=== PATIENT | female | born 1955 | race Caucasian/White ===

== ENCOUNTER → 2017-06-08 | Outpatient (CLI) | payer MEDICAID ==
[~2017-06-08] MED LIST: IOPAMIDOL (ISOVUE 370) 100 ML BTL IV ONE
== END ==
LOC: FIMAGING 07:26
PROVIDERS: ATTEND Physician Assistant
DX: R91.1 Solitary pulmonary nodule (principal)
CPT/HCPCS: Q9967

== ENCOUNTER → 2017-07-20 | Outpatient (CLI) | payer MEDICAID | LOC: FIMAGING 10:07 | PROVIDERS: ATTEND Internal Medicine | DX: Z12.31 Encounter for screening mammogram for malignant neoplasm of breast (principal) ==

== ENCOUNTER → 2017-12-28 | Outpatient (CLI) | payer MEDICAID | LOC: FIMAGING 15:24 | PROVIDERS: ATTEND Internal Medicine | DX: S92.531A Displaced fracture of distal phalanx of right lesser toe(s), initial encounter for closed fracture (principal); Y93.01 Activity, walking, marching and hiking ==

== ENCOUNTER 2018-01-21 09:03 | Emergency (ER) | payer MEDICAID ==
[2018-01-21] MEDS ORDERED: LORazepam 1 MG TAB PO ONE (09:39)
--- NOTE | 2018-01-21 09:53 | EDPHY ---
H & P Smoking Status: Former smoker Time Seen by Provider: 01/21/18 09:33 HPI/ROS: CHIEF COMPLAINT: "I think I was bitten by raccoon" HISTORY OF PRESENT ILLNESS: 62-year-old female with out-of-date tetanus, no medical comorbidities, arrives via private vehicle stating that this morning her 2 dogs ran into a [employer] [place] and she then entered [place] where she sustained multiple abrasions from the plants but found with 1 of her dogs being attacked by a raccoon. She engaged with the raccoon and sustained multiple scratches and possible bites from the raccoon in order to save her dogs. The specific location of this raccoon is unknown by the patient. PRIMARY CARE PROVIDER: REVIEW OF SYSTEMS: A ten point review of systems was performed and is negative with the exception of the items mentioned in the HPI PHYSICAL EXAM (Prior to examination, patient consented to physical exam, hands were washed and my usual and customary physical exam procedures followed) 1) GENERAL: Well-developed, well-nourished, alert and oriented. Appears to be in no acute distress. 2) HEAD: Normocephalic 3) HEENT: sclera anicteric 4) LUNGS: Breathing comfortably. 5) SKIN: Multiple lower extremity abrasions all of which appear noninfected. Multiple upper extremity abrasions all which appear uninfected. No definitive puncture wounds. 6) MUSCULOSKELETAL: All compartments are soft of the upper and lower extremities no signs of infection. No signs of cellulitis. (Nola Soares) Constitutional: Initial Vital Signs Temperature (C) 36.5 C 01/21/18 09:04 Heart Rate 80 01/21/18 09:04 Respiratory Rate 18 01/21/18 09:04 Blood Pressure 125/83 H 01/21/18 09:04 O2 Sat (%) 98 01/21/18 09:04 O2 Delivery Mode Room Air Allergies/Adverse Reactions: codeine Allergy (Mild, Verified 01/21/18 09:09) Rash Home Medications: Medication Instructions Recorded Amoxicillin/Clavulanate Pot 875 mg PO BID #14 tab 01/21/18 [Augmentin 875 mg tab] Eye Drops For Glaucoma 01/21/18 Fluticasone/Salmeterol [Advair Hfa 12 gm IH 01/21/18 115-21 Mcg Inhaler] Montelukast Sodium [Singulair 10 10 mg PO DAILY@1800 01/21/18 mg (*)] MDM/Departure - MDM Medications Given: Discontinued Medications Diphtheria/Tetanus/Acell Pertussis (Boostrix) 0.5 ml IM .ONCE ONE Stop: 01/21/18 09:55 Last Admin: 01/21/18 11:19 Dose: 0.5 ml Lorazepam (Ativan) 1 mg PO EDNOW ONE Stop: 01/21/18 09:40 Last Admin: 01/21/18 09:50 Dose: 1 mg Rabies Immune Globulin (Hyperrab 150 Unit/Ml) 1,780 unit IM .ONCE ONE Stop: 01/21/18 09:55 Last Admin: 01/21/18 11:10 Dose: 1,780 unit Rabies Vaccine Human Diploid Cell (Rabavert) 2.5 unit IM .ONCE ONE Stop: 01/21/18 09:55 Last Admin: 01/21/18 11:06 Dose: 2.5 unit ED Course/Re-evaluation: 9:50 a.m.: Patient I discussed that because she has engaged with raccoon and sustained possible bites I recommended updating her tetanus, initiating antibiotic therapy with Augmentin and initiating post exposure rabies prophylaxis.. Today will be considered day 0. There is no definitive of bite site to inject the immunoglobulin and will therefore be dispersed per nursing protocols. 9:57 a.m.: Consultation with Dr. Cydney Rosales as the patient will need follow- up for further rabies post exposure prophylaxis at the [facility]. This information has been written down for the patient. I saw this patient independently based on established practice protocols. Care of patient under supervision of secondary supervising physician Dr Teo Newman with whom I discussed case. (Nola Soares) I did not see this patient while she was in the emergency department. However her care was discussed with the PA while the patient was in the department. I agree with treatment plan and management (Teo Newman) - Depart Disposition: Home, Routine, Self-Care Clinical Impression: Raccoon bite Qualifiers: Encounter type: initial encounter Qualified Code(s): W55.51XA - Bitten by raccoon, initial encounter Condition: Good Instructions: Animal Bite (ED), Rabies (ED) Additional Instructions: Your rabies schedule is as follows: Today is considered day 0 (01/21/18) You will need follow-up rabies vaccine on Day 3: 01/24 Day 7: 01/28 Day 14: 02/04 Prescriptions: Amoxicillin/Clavulanate Pot [Augmentin 875 mg tab] 875 mg PO BID #14 tab Referrals: [facility] [Outside] - 01/24/18
[2018-01-21] MEDS ORDERED: TDAP ADULT 0.5 ML INJ (BOOSTRIX) IM ONE (09:54)
[2018-01-21] MEDS ORDERED: RABIES IMMUNE GLOBULIN 300 UNIT/2 ML VIAL IM ONE (09:54)
[2018-01-21] MEDS ORDERED: RABIES VACC, HUMAN DIPLOID/PF 2.5 UNIT VIAL (RABAVERT) IM ONE (09:54)
[2018-01-21 11:39] VITALS: BP 140/69
== END 2018-01-21 11:37 | disposition home or self-care (01) ==
DX: S40.811A Abrasion of right upper arm, initial encounter (principal); S40.812A Abrasion of left upper arm, initial encounter; S80.811A Abrasion, right lower leg, initial encounter; S80.812A Abrasion, left lower leg, initial encounter; Z23 Encounter for immunization; Z87.891 Personal history of nicotine dependence; W55.51XA Bitten by raccoon, initial encounter; Y92.89 Other specified places as the place of occurrence of the external cause; Y99.8 Other external cause status; Y93.89 Activity, other specified

== ENCOUNTER 2018-04-21 08:13 | Day surgery (SDC) | payer MEDICAID ==
[2018-04-21] MEDS ORDERED: LR 1,000 ML IV ONE (08:25)
[2018-04-21] MEDS ORDERED: LIDOCAINE 1% 2 ML INJ ID PRN (08:25)
--- NOTE | 2018-04-21 09:06 | PDANEPAE ---
ANE History of Present Illness Right 3rd toe fracture and cyst, here for ORIF and cystectomy ANE Past Medical History - Cardiovascular History Hx Hypertension: No Hx Arrhythmias: No Hx Chest Pain: No Hx Coronary Artery / Peripheral Vascular Disease: No Hx CHF / Valvular Disease: No Hx Palpitations: No Cardiovascular History Comment: SSS PACEMAKER PLACED 02/21/18 - Pulmonary History Hx COPD: No Hx Asthma/Reactive Airway Disease: Yes Hx Recent Upper Respiratory Infection: No Hx Oxygen in Use at Home: No O2 in Use at Home (L/minute): 2 L WITH C-PAP Hx Sleep Apnea: Yes Sleep Apnea Screening Result - Last Documented: Positive - Neurologic History Hx Cerebrovascular Accident: No Hx Seizures: No Hx Dementia: No - Endocrine History Hx Diabetes: No - Renal History Hx Renal Disorders: No - Liver History Hx Hepatic Disorders: No - Neurological & Psychiatric Hx Hx Neurological and Psychiatric Disorders: Yes Neurological / Psychiatric History Comment: ANXIETY - Cancer History Hx Cancer: Yes Cancer History Comment: SKIN - Congenital Disorder History Hx Congenital Disorders: No - GI History Hx Gastrointestinal Disorders: Yes Gastrointestinal History Comment: HX OF COLON POLYPS - Other Health History Other Health History: GLAUCOMA. LOWER EXT ABRASIONS 12/2017. RABIES VACINATION 12/2017. MISSING TEETH - Chronic Pain History Chronic Pain: Yes (RT FOOT TOES) - Surgical History Prior Surgeries: PACEMAKER 02/16/18 [facility]. HYSTERECTOMY WITH BSO. APPENDECTOMY. CERVICAL DISCECTOMY. GASTRIC BYPASS 10/2017 AT [facility]. NASAL MOH'S PROCEDURE ANE Review of Systems Review of Systems: - Pacemaker Pacemaker Reinforcing Steel Erector: Medtronic Pacemaker Model: [place] XT DR ABBASI W1DR0 Pacemaker Mode: DDD Date Pacemaker Last Checked: 03/25/18 ANE Patient History - Allergies Allergies/Adverse Reactions: codeine Allergy (Mild, Verified 01/21/18 09:09) Rash - Home Medications Home Medications: Advair 100/50 (*) BID 02/23/18 [Last Taken 04/20/18] Montelukast Sodium PO HS 02/23/18 [Last Taken 04/20/18] Proair Hfa IH PRN 02/23/18 [Last Taken 03/22/18] Flonase Nasal [place] BID 04/08/18 [Last Taken 04/20/18] Latanoprost 0.005% Eye Drop HS 04/08/18 [Last Taken 04/20/18] ZYRTEC DAILY 04/08/18 [Last Taken 04/20/18] - NPO status NPO Since - Liquids (Date): 04/21/18 NPO Since - Liquids (Time): 00:00 NPO Since - Solids (Date): 04/20/18 NPO Since - Solids (Time): 19:00 - Smoking Hx Smoking Status: Former smoker ANE Labs/Vital Signs - Vital Signs Blood Pressure: 105/73 Heart Rate: 64 Respiratory Rate: 16 O2 Sat (%): 94 Height: 170.18 cm Weight: 83.915 kg ANE Physical Exam - Airway Neck exam: FROM Mallampati Score: Class 2 Mouth exam: normal dental/mouth exam - Pulmonary Pulmonary: no respiratory distress - Cardiovascular Cardiovascular: regular rate and rhythym, no murmur, rub, or gallop - ASA Status ASA Status: III ANE Anesthesia Plan Anesthesia Plan: GA w LMA
[2018-04-21] MEDS ORDERED: MIDAZOLAM 2 MG/2 ML VIAL IVP ONE (09:08)
[2018-04-21] MEDS ORDERED: ceFAZolin 2 GM/DEXTROSE 100 ML IV ONE (09:12)
--- NOTE | 2018-04-21 09:12 | PDHPUP ---
History & Physical Update H&P update statement: This history and physical update is based on an assessment of the patient which was completed after admission or registration (within 24 hours), but prior to the surgery/procedure. H&P update: H&P reviewed & patient examined, no change in patient's condition since H&P completed
[2018-04-21] MEDS ORDERED: PROPOFOL/EMULSION 500 MG/50 ML BOTTLE IV ONE (09:48)
[2018-04-21] MEDS ORDERED: fentaNYL 100 MCG/2 ML INJ ONE (09:48)
[2018-04-21] MEDS ORDERED: LIDOCAINE 2% 5 ML SDV ONE (09:48)
[2018-04-21] MEDS ORDERED: DEXAMETHASONE 4 MG/ML VIAL ONE (09:48)
[2018-04-21] MEDS ORDERED: ONDANSETRON 4 MG/2 ML VIAL ONE (09:48)
[2018-04-21] MEDS ORDERED: EPINEPHrine 1 MG/ML INJ ONE (09:49)
[2018-04-21] MEDS ORDERED: BACITRACIN 50,000 UNITS/10 ML SYR IRR ONE ×2 (09:49→10:19)
[2018-04-21] MEDS ORDERED: BUPIVACAINE 0.25% 30 ML SDV ONE (09:49)
[2018-04-21] MEDS ORDERED: PROPOFOL 200 MG/20 ML VIAL ONE (10:56)
--- NOTE | 2018-04-21 11:36 | POSTOPPROG ---
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
[2018-04-21] MEDS ORDERED: fentaNYL 100 MCG/2 ML INJ IVP PRN (12:09)
[2018-04-21] MEDS ORDERED: ACETAMINOPHEN 500 MG TAB PO PRN (12:09)
[2018-04-21] MEDS ORDERED: DEXAMETHASONE 4 MG/ML VIAL IVP PRN (12:09)
[2018-04-21] MEDS ORDERED: oxyCODONE IR 5 MG TAB PO PRN (12:09)
[2018-04-21] MEDS ORDERED: ONDANSETRON 4 MG/2 ML VIAL IVP PRN (12:09)
[2018-04-21] MEDS ORDERED: NALOXONE HCL 0.4 MG/ML INJ IVP PRN (12:09)
--- NOTE | 2018-04-21 12:10 | POSTANESTH ---
Post Anesthetic Evaluation Cardiovascular Status: Normal, Stable Respiratory Status: Normal, Stable Level of Consciousness/Mental Status: Can Participate in Eval Pain Control: Adequate, Prn Tx Ordered Nausea/Vomiting Control: Adequate, Prn Tx Ordered Complications Possibly Related to Anesthesia: None Noted
[2018-04-21] MEDS ORDERED: ACETAMINOPHEN 500 MG TAB ONE (12:12)
[2018-04-21 13:52] VITALS: BP 111/70
--- NOTE | 2018-04-22 06:27 | GOP ---
DATE OF OPERATION: 04/21/2018 SURGEON: Tu Rogel DPM BB SHOT PACKER: None. ANESTHESIA: Local with MAC. ANESTHESIOLOGIST: Dr. Beth. PREOPERATIVE DIAGNOSIS: 1. Soft tissue tumor, right 2nd digit. 2. 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 POSTOPERATIVE DIAGNOSIS: 1. Soft tissue tumor, right 2nd digit. 2. 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 PROCEDURE PERFORMED: 1. Fusion, right 3rd distal interphalangeal joint. 2. Excision soft tissue tumor, right 2nd digit. FINDINGS: SPECIMENS: Soft tissue specimen sent for pathological evaluation. ESTIMATED BLOOD LOSS: Minimal. DESCRIPTION OF PROCEDURE: The patient presented to [facility] and was cleared for the intended procedure. Patient was taken to the operating room and placed on the table in supine positi on. IV sedation was started per the anesthesia department. Foot was anesthetized and infiltrated in nerve block fashion. Foot was prepped, scrubbed and draped in the usual sterile fashion. Following exsanguination by elevation of Esmarch bandage, pneumatic ankle tourniquet was inflated to 225 mmHg. At this time, attention was directed to the plantar lateral aspect of the right 2nd digit, where th e obvious soft tissue mass was identified. At this time, 2 converging semi-elliptical incisions were made running from [id number] around the soft tissue mass. The incisions were carried deep u tilizing sharp blunt dissection, making sure that all the vascular structures were identified and ret racted at this time, and all superficial bleeders were cauterized. The incision was carried down thr ough to the subcutaneous tissue, at which time the interposing skin tissue and the soft tissue mass w ere dissected free. It was then sent in for pathological evaluation. Inspection of the area showed no remaining soft tissue mass at this time. The area was flushed with copious amounts of sterile santosh ine, before the deep closure with 5-0 Vicryl and skin closure with 5-0 nylon was performed. Upon com pletion of this, attention was redirected to the dorsal aspect of the right 3rd digit, where a linear incision was made over the distal interphalangeal joint. This incision was again carried deep, util izing sharp and blunt dissection, making sure that all the neurovascular structures were identified a nd retracted at this time. All superficial bleeders were cauterized. The incision was carried down to the level of the joint capsule. Capsulotomy was performed at this time, and capsular tissues were dissected free medially and laterally to allow for adequate exposure to the site. Upon completion o f this, substantial degenerative arthritic changes were noted, especially involving the base of the d istal phalanx. It was decided that a fusion would be necessary. A sagittal saw was then utilized to remove the cartilaginous surface from the head of the intermediate phalanx. A high-speed rotary bur was utilized to remove the cartilaginous surface from the base of the distal phalanx. Both areas we re subchondrally drilled with a K-wire at this time, confirming good active bleeding at the sites. I t was then decided the area would be fixated with an Osteomed 2.0 cannulated screw. A K-wire was int roduced from the distal tip of the screw, under C-arm fluoroscopy, going through the distal phalanx a nd into the intermediate phalanx. Upon confirming excellent alignment in both the sagittal and trans verse planes, a stab incision was made at the distal end of the toe at the level of the K-wire. The area was measured for an 18 mm screw. The headed compression screw was then placed across the site, and good compression was obtained, which was again confirmed by C-arm fluoroscopy. Upon completion o f this, the K-wire was removed. The area was flushed with copious amounts of sterile saline. The ca psule was reapproximated with 5-0 Vicryl, followed by skin closure with 5-0 nylon. Both areas were d ressed with Betadine-soaked Adaptics, 4x4s, Radha, and Daina. The patient was taken to recovery room with vital signs stable and vascular supply intact to digits 1 through 5 bilaterally, after the [facility] ankle tourniquet had been released for a total tourniquet time of 61 minute. HEMOSTASIS: PAT at 225 mmHg by 61 minutes. MATERIALS: Osteomed 2.0 cannulated screw by 18 mm. INJECTABLES: 20 cc in 9:1 ratio, 0.25% Marcaine plain and 0.25% Marcaine with epinephrine preoperati vely. COMPLICATIONS: None. /[id number]/MODL
== END 2018-04-21 13:48 | disposition home or self-care (01) ==
LOC: FSGY 08:13
PROVIDERS: ATTEND Podiatrist Primary Podiatric Medicine
DX: D36.7 Benign neoplasm of other specified sites (principal); M19.071 Primary osteoarthritis, right ankle and foot; F41.8 Other specified anxiety disorders; J45.909 Unspecified asthma, uncomplicated; E78.00 Pure hypercholesterolemia, unspecified; G47.33 Obstructive sleep apnea (adult) (pediatric); I49.5 Sick sinus syndrome
CPT/HCPCS: 28108; 28285; C1769; C1713; J0171; J0690; J1100; J2250; J2405; J2704; J3010

== ENCOUNTER 2018-09-19 08:05 | Emergency (ER) | payer OTHER ==
--- NOTE | 2018-09-19 08:29 | EDPHY ---
H & P Stated Complaint: tripped over dog last night inj r knee Time Seen by Provider: 09/19/18 08:19 HPI/ROS: CHIEF COMPLAINT: Right knee pain HISTORY OF PRESENT ILLNESS: Patient is a 63-year-old female who states that she was walking her dogs yesterday evening when 1 of on crossed in front over and tripped her up. She fell to the ground in a kneeling position on her right knee. She has small abrasion and bruising on that knee just lateral to the patella. She has been able to ambulate since. She states that she was concerned however because at 1 point in the past she broke toe and did not realize it ended up needing surgery. She denies other injuries. She denies recent fevers or illness. Severity: Moderate Modifying factors: Improves with rest REVIEW OF SYSTEMS: Constitutional: denies: chills, fever, recent illness, recent injury EENTM: denies: blurred vision, double vision, nose congestion Respiratory: denies: cough, shortness of breath Cardiac: denies: chest pain, irregular heart rate, lightheadedness, palpitations Gastrointestinal/Abdominal: denies: abdominal pain, diarrhea, nausea, vomiting, blood streaked stools Genitourinary: denies: dysuria, frequency, hematuria, pain Musculoskeletal: See HPI Skin: denies: lesions, rash, jaundice, bruising Neurological: denies: headache, numbness, paresthesia, tingling, dizziness, weakness Hematologic/Lymphatic: denies: blood clots, easy bleeding, easy bruising Immunologic/allergic: denies: HIV/AIDS, transplant 10 systems reviewed and negative except as noted EXAM: GENERAL: Well-appearing, well-nourished and in no acute distress. HEAD: Atraumatic, normocephalic. EYES: Pupils equal round and reactive to light, extraocular movements intact, sclera anicteric, conjunctiva are normal. ENT: TMs normal, nares patent, oropharynx clear without exudates. Moist mucous membranes. NECK: Normal range of motion, supple without lymphadenopathy or JVD. LUNGS: Breath sounds clear to auscultation bilaterally and equal. No wheezes rales or rhonchi. HEART: Regular rate and rhythm without murmurs, rubs or gallops. ABDOMEN: Soft, nontender, normoactive bowel sounds. No guarding, no rebound. No masses appreciated. BACK: No CVA tenderness, no spinal tenderness, step-offs or deformities EXTREMITIES: See diagram, Normal range of motion, no pitting or edema. No clubbing or cyanosis. NEUROLOGICAL: Cranial nerves II through XII grossly intact. Normal speech, normal gait. 5/5 strength, normal movement in all extremities, normal sensation , normal reflexes PSYCH: Normal mood, normal affect. SKIN: Warm, dry, normal turgor, no visible rashes or lesions. Source: Patient Exam Limitations: No limitations - Personal History Current Tetanus Diphtheria and Acellular Pertussis (TDAP): Yes - Medical/Surgical History Hx Asthma: No Hx Chronic Respiratory Disease: Yes Hx Diabetes: No Hx Cardiac Disease: Yes Hx Renal Disease: No Hx Cirrhosis: No Hx Alcoholism: No Hx HIV/AIDS: No Hx Splenectomy or Spleen Trauma: No Other PMH: asthma. glaucoma. hypoxemia--?unk cause. pacer 02/12 "heart block" - Family History Significant Family History: No pertinent family hx - Social History Smoking Status: Former smoker Alcohol Use: None Constitutional: Initial Vital Signs Temperature (C) 36.5 C 09/19/18 08:07 Heart Rate 61 09/19/18 08:07 Respiratory Rate 17 09/19/18 08:07 Blood Pressure 108/74 09/19/18 08:07 O2 Sat (%) 97 09/19/18 08:07 O2 Delivery Mode Room Air Allergies/Adverse Reactions: codeine Allergy (Mild, Verified 01/21/18 09:09) Rash Home Medications: Medication Instructions Recorded Advair 100/50 (*) BID 02/23/18 Montelukast Sodium PO HS 02/23/18 Proair Hfa IH PRN 02/23/18 Flonase Nasal [place] BID 04/08/18 Latanoprost 0.005% Eye Drop HS 04/08/18 ZYRTEC DAILY 04/08/18 Zoloft 100mg (*) 09/19/18 ED Images - Extremities Legs Front/Back: 1 - Mild swelling and bruising. Slight abrasion. Minimally tender. Normal range of motion. No laxity. No patellar tenderness. Normal extension and ambulation. Medical Decision Making - Diagnostics Imaging: Discussed imaging studies w/ emanations analysis technician Radiologist ED Course/Re-evaluation: 9:00 a.m. x-rays are reassuring. Patient is able to ambulate on her own. I recommended compression ice and rest with weight-bearing as tolerated. She is happy with this plan. I will refer her to Orthopedics in case her symptoms are not improving. Differential Diagnosis: Partial list of the Differential diagnosis considered include but were not limited to; contusion, internal derangement and although unlikely based on the history and physical exam, I also considered fracture, patella tendon rupture, patella fracture. I discussed these differential diagnoses and the plan with the patient as well as the usual and expected course. The patient understands that the diagnosis is provisional and that in medicine we are not always correct and that further workup is often warranted. Usual and customary warnings were given. All of the patient's questions were answered. The patient was instructed to return to the emergency department should the symptoms at all worsen or return, otherwise to followup with the physician as we discussed. Departure - Departure Disposition: Home, Routine, Self-Care Clinical Impression: Contusion of right knee Qualifiers: Encounter type: initial encounter Qualified Code(s): S80.01XA - Contusion of right knee, initial encounter Condition: Fair Instructions: Contusion in Adults (ED) Referrals: Ariadna Galdamez MD [Primary Care Provider] - As per Instructions
[2018-09-19 09:16] VITALS: BP 105/78
== END 2018-09-19 09:19 | disposition home or self-care (01) ==
DX: S80.01XA Contusion of right knee, initial encounter (principal); S80.211A Abrasion, right knee, initial encounter; W54.8XXA Other contact with dog, initial encounter; Y93.K1 Activity, walking an animal

== ENCOUNTER → 2018-10-03 | Outpatient (CLI) | payer MEDICAID | LOC: BMCIMAGING 09:56 | PROVIDERS: ATTEND Internal Medicine | DX: D17.39 Benign lipomatous neoplasm of skin and subcutaneous tissue of other sites (principal) ==

== ENCOUNTER 2018-11-04 05:34 | Day surgery (SDC) | payer MEDICAID ==
[2018-11-04] MEDS ORDERED: ceFAZolin 2 GM/DEXTROSE 100 ML IV ONE (05:50)
[2018-11-04] MEDS ORDERED: LR 1,000 ML IV ONE (05:51)
[2018-11-04] MEDS ORDERED: BUPIVACAINE 0.5% 30 ML SDV ONE (06:35)
[2018-11-04] MEDS ORDERED: MIDAZOLAM 2 MG/2 ML VIAL IVP ONE (07:03)
--- NOTE | 2018-11-04 07:06 | PDANEPAE ---
ANE History of Present Illness Right axillary mass ANE Past Medical History - Cardiovascular History Hx Hypertension: No Hx Arrhythmias: Yes Hx Chest Pain: No Hx Coronary Artery / Peripheral Vascular Disease: No Hx CHF / Valvular Disease: No Hx Palpitations: No Cardiovascular History Comment: SSS PACEMAKER PLACED 02/21/18 - Pulmonary History Hx COPD: No Hx Asthma/Reactive Airway Disease: Yes Hx Recent Upper Respiratory Infection: No Hx Oxygen in Use at Home: Yes Hx Sleep Apnea: Yes Sleep Apnea Screening Result - Last Documented: Positive Pulmonary History Comment: allergies trigger asthma. JACQUELINE does not use CPAP - Neurologic History Hx Cerebrovascular Accident: No Hx Seizures: No Hx Dementia: No - Endocrine History Hx Diabetes: No - Renal History Hx Renal Disorders: No - Liver History Hx Hepatic Disorders: No - Neurological & Psychiatric Hx Hx Neurological and Psychiatric Disorders: Yes Neurological / Psychiatric History Comment: anxiety, depression - Cancer History Hx Cancer: Yes Cancer History Comment: SKIN - Congenital Disorder History Hx Congenital Disorders: No - GI History Hx Gastrointestinal Disorders: Yes Gastrointestinal History Comment: HX OF COLON POLYPS - Other Health History Other Health History: GLAUCOMA. LOWER EXT ABRASIONS 12/2017. RABIES VACINATION 12/2017. MISSING TEETH - Chronic Pain History Chronic Pain: Yes (RT FOOT TOES) - Surgical History Prior Surgeries: PACEMAKER 02/16/18 [facility]. HYSTERECTOMY WITH BSO. APPENDECTOMY. CERVICAL DISCECTOMY. GASTRIC BYPASS 10/[address] [facility]. NASAL MOH'S PROCEDURE. fx toe to right foot ANE Review of Systems Review of Systems: - Exercise capacity METS (RN): 4 METS - Pacemaker Pacemaker Type: Permanent Pacer/Defib Pacemaker Sampler First: Medtronic Pacemaker Model: CORRINE XT MRI W1DR0 Pacemaker Mode: AAI-DDD Date Pacemaker Last Checked: 06/15/18 ANE Patient History - Allergies Allergies/Adverse Reactions: codeine Allergy (Mild, Verified 11/02/18 10:40) Rash - Home Medications Home Medications: Advair 100/50 (*) BID 02/23/18 [Last Taken 11/03/18] Montelukast Sodium PO HS 02/23/18 [Last Taken 11/03/18] Proair Hfa IH PRN 02/23/18 [Last Taken 11/03/18] Flonase Nasal [place] BID 04/08/18 [Last Taken 11/03/18] Latanoprost 0.005% Eye Drop HS 04/08/18 [Last Taken 11/03/18] ZYRTEC DAILY 04/08/18 [Last Taken 11/03/18] Zoloft 100mg (*) 09/19/18 [Last Taken 11/03/18] - NPO status NPO Status: no food or drink >8 hours NPO Since - Liquids (Date): 11/03/18 NPO Since - Liquids (Time): 21:00 NPO Since - Solids (Date): 11/03/18 NPO Since - Solids (Time): 19:00 - Anes Hx Anes Hx: no prior problems - Smoking Hx Smoking Status: Former smoker - Family Anes Hx Family Hx Anesthesia Complications: none ANE Labs/Vital Signs - Vital Signs Blood Pressure: 121/73 Heart Rate: 67 Respiratory Rate: 16 O2 Sat (%): 92 Height: 170.18 cm Weight: 79.379 kg ANE Physical Exam - Airway Neck exam: FROM Mallampati Score: Class 1 Mouth exam: normal dental/mouth exam, poor dentition - Pulmonary Pulmonary: no respiratory distress, no rales or rhonchi - Cardiovascular Cardiovascular: regular rate and rhythym, no murmur, rub, or gallop - ASA Status ASA Status: III ANE Anesthesia Plan Anesthesia Plan: GA with mask
[2018-11-04] MEDS ORDERED: fentaNYL 100 MCG/2 ML INJ ONE (07:14)
[2018-11-04] MEDS ORDERED: PROPOFOL/EMULSION 500 MG/50 ML BOTTLE IV ONE (07:14)
[2018-11-04] MEDS ORDERED: fentaNYL 100 MCG/2 ML INJ IVP PRN (07:46)
[2018-11-04] MEDS ORDERED: ONDANSETRON 4 MG/2 ML VIAL IVP PRN (07:46)
[2018-11-04] MEDS ORDERED: DEXAMETHASONE 4 MG/ML VIAL IVP PRN (07:46)
[2018-11-04] MEDS ORDERED: oxyCODONE IR 5 MG TAB PO PRN (07:46)
[2018-11-04] MEDS ORDERED: ACETAMINOPHEN 500 MG TAB PO PRN (07:46)
[2018-11-04] MEDS ORDERED: NALOXONE HCL 0.4 MG/ML INJ IVP PRN (07:46)
[2018-11-04] MEDS ORDERED: PROMETHAZINE HCL 25 MG/ML INJ IVP PRN (07:46)
[2018-11-04] MEDS ORDERED: ALBUTEROL 3 ML DEYVIAL IH PRN (07:46)
[2018-11-04 09:07] VITALS: BP 113/60
--- NOTE | 2018-11-04 12:36 | POSTOPPROG ---
Post Op Note Date of Operation: 11/04/18 Surgeon: Geo Cedillo Anesthesiologist: Brice Anesthesia: IV Sedation Pre-op Diagnosis: R axillary mass Post-op Diagnosis: same Procedure: Excisional Right axillary mass Findings: 4x3cm lipoma resected, no suspicious findings Inf/Abcess present in the surg proc area at time of surgery?: No EBL: Minimal Specimen(s): R axillary mass
--- NOTE | 2018-11-04 12:58 | GOP ---
[f rep st] OPERATIVE REPORT DATE OF OPERATION: 11/04/2018 SURGEON: Geo Cedillo MD COMMISSIONER OF INTERNAL REVENUE: None. ANESTHESIA: IV sedation provided ANESTHESIOLOGIST: Dr. Shannon Narvaez PREOPERATIVE DIAGNOSIS: Right axillary mass. POSTOPERATIVE DIAGNOSIS: Right axillary mass. PROCEDURE PERFORMED: Excision of right axillary mass. FINDINGS: 4 x 3 cm right axillary lipoma successfully resected. No suspicious findings. SPECIMENS: Right axillary mass. ESTIMATED BLOOD LOSS: 5 cc. DESCRIPTION OF PROCEDURE: The patient was greeted in the preoperative suite. Once again, risks, karma efits, and alternatives were discussed. Consent was signed. She was then brought back to the operat theresa suite, placed on the OR table in supine position. After all anesthesia machines, including SCDs, were on and functioning, World Health Organization time-out was performed. The patient was then gen tly sedated. I commenced the procedure by creating a field block around the area. I then made a 2 c m incision through the skin in the inferior axilla on the right side. I carried this down to the sub cutaneous tissue. I identified the mass and successfully resected it all. It was passed off. Hemos tasis was achieved with gentle pressure. I irrigated the cavity. It was then closed in layers first with interrupted 3-0 Vicryl, followed by 4-0 Monocryl. Dermabond was placed. The patient was then gently awoken and taken to PACU in satisfactory condition. DRAINS: None. COUNTS: All counts were reported as correct x2. /[id number]/MODL
== END 2018-11-04 09:53 | disposition home or self-care (01) ==
LOC: FSGY 05:34
PROVIDERS: ATTEND Surgery
PROC: 0JBD0ZX Excision of Right Upper Arm Subcutaneous Tissue and Fascia, Open Approach, Diagnostic (ICD-10-PCS; principal; 2018-11-04 07:15)
DX: D17.30 Benign lipomatous neoplasm of skin and subcutaneous tissue of unspecified sites (principal); E78.00 Pure hypercholesterolemia, unspecified; Z98.84 Bariatric surgery status; Z95.0 Presence of cardiac pacemaker; Z86.79 Personal history of other diseases of the circulatory system
CPT/HCPCS: J0690; J2250; J2704; J3010